=== PATIENT | male | born 1955 | race Caucasian/White ===

== ENCOUNTER 2017-01-30 18:02 | Emergency (ER) | payer MEDICARE ==
[2017-01-30 18:35] LABS: BASOPHILS 0.4 % (0-2); EOSINOPHILS 1.6 % (0-7); HEMATOCRIT 30.7 % (42.0-54.0); HEMOGLOBIN 10.6 g/dL (13.5-17.5); IMMATURE GRANULOCYTES 0.4 % (0-5); LYMPHOCYTES 22.7 % (15-50); MCHC 34.5 g/dL (31.0-37.0); MCV 81.2 fL (80.0-100.0); MEAN PLATELET VOLUME 8.2 fL (7.4-10.4); MONOCYTES 8.8 % (2-11); NEUTROPHILS 66.1 % (40-80); PLATELET COUNT 516 10x3/uL (130-400); RBC 3.78 10x6/uL (4.20-6.10); RDW 15.4 % (11.5-14.5)
[2017-01-30 18:49] LABS: ALBUMIN 3.2 g/dL (3.4-5.0); ALKALINE PHOSPHATASE 83 U/L (46-116); ALT (SGPT) 30 U/L (10-68); BILIRUBIN - TOTAL 0.21 mg/dL (0.2-1.3); CALC OSMOLALITY 256 mosm/kg (275-300); CALCIUM 8.4 mg/dL (8.5-10.1); CARBON DIOXIDE 26.2 mmol/L (21.0-32.0); CHLORIDE - SERUM 92 mmol/L (98-107); CREATININE - SERUM 0.5 mg/dL (0.6-1.3); GLUCOSE 128 mg/dL (74-106); POTASSIUM - SERUM 3.6 mmol/L (3.5-5.1); PROTEIN - SERUM 6.9 g/dL (6.4-8.2); SODIUM 128 mmol/L (136-145); UREA NITROGEN 6 mg/dL (7-18); eGFR NON AFRICAN AMERICAN > 90 mL/min (90-120)
== END 2017-01-30 19:01 | disposition home or self-care (01) ==
LOC: D.ER 18:02 → EDBD 18:02 → D.ER 19:01
PROVIDERS: Emergency Medicine
DX: F23 Brief psychotic disorder (principal); D64.9 Anemia, unspecified; K21.9 Gastro-esophageal reflux disease without esophagitis; E11.9 Type 2 diabetes mellitus without complications